=== PATIENT | male | born 1955 | race Caucasian/White ===

== ENCOUNTER 2024-04-23 12:40 | Emergency (ER) | payer MEDICARE ==
[~2024-04-23] VITALS: Ht 175.3 cm; Wt 108.9 kg
[2024-04-23] MEDS ORDERED: LOSARTAN POTASS25 M2 PO (12:57)
[2024-04-23] MEDS ORDERED: CARV6.25 PO (12:57)
[2024-04-23] MEDS ORDERED: Diltiazem HCl 5 MG / ML 5ML Vial IV ONE ×2 (13:35→14:05)
[2024-04-23 13:44] LABS: BASOPHILS ABSOLUTE AUTO 0.07 K/mm3 (0.00-0.23); BASOPHILS PERCENT AUTO 1 % (0-2); EOSINOPHILS ABSOLUTE AUTO 0.27 K/mm3 (0.00-0.68); EOSINOPHILS PERCENT AUTO 2 % (0-6); Hematocrit 42.5 % (37.0-53.0); Hemoglobin 14.3 g/dL (13.5-17.5); IMMATURE GRAN ABSOLUTE AUTO 0.03 K/mm3 (0.00-0.10); IMMATURE GRAN PERCENT AUTO 0 % (0-1); LYMPHOCYTES ABSOLUTE AUTO 1.71 K/mm3 (0.84-5.20); LYMPHOCYTES PERCENT AUTO 14 % (21-46); MONOCYTES ABSOLUTE AUTO 1.02 K/mm3 (0.16-1.47); MONOCYTES PERCENT AUTO 8 % (4-13); Mean Corpuscular HGB 32.6 pg (26.0-34.0); Mean Corpuscular HGB Conc 33.6 g/dL (31.5-36.5); Mean Corpuscular Volume 97 fL (80-100); Mean Platelet Volume 10.1 fL (9.1-12.4); NEUTROPHILS PERCENT AUTO 75 % (41-73); Platelet Count 258 K/mm3 (150-400); RDW Coefficient Variation 14.4 % (11.7-14.2); RDW Standard Deviation 51.4 fL (35.1-46.3); Red Blood Cell Count 4.38 M/mm3 (4.30-5.90)
[2024-04-23 13:59] LABS: Albumin, Blood 3.3 g/dL (3.4-5.0); Bilirubin, Total 0.9 mg/dL (0.1-1.0); Bun/Creatinine Ratio 15.7 (12.0-20.0); Calcium, Blood 8.6 mg/dL (8.5-10.1); Creatinine, Blood 0.96 mg/dL (0.60-1.20); Globulin, Blood 3.4 g/dL (2.2-4.0); Potassium, Blood 4.2 mmol/L (3.5-5.5); Total Protein, Blood 6.7 g/dL (6.4-8.2)
[2024-04-23 15:27] LABS: U Amphetamine Screen Not Detected; U Barbituate Screen Not Detected; U Benzodiazapine Screen Not Detected; U Buprenorphine Screen Not Detected; U Cannabinoids Screen Not Detected; U Cocaine Screen Not Detected; U Methadone Screen Not Detected; U Methamphetamine Screen Not Detected; U Opiates Screen Not Detected; U Oxycodone Screen Not Detected; U Phencyclidine Screen Not Detected
== END 2024-04-23 15:22 | disposition left against medical advice (07) ==
LOC: ER 12:40
PROVIDERS: Emergency Medicine; Physician Assistant
DX: R00.2 Palpitations (principal); I48.91 Unspecified atrial fibrillation; Z88.5 Allergy status to narcotic agent; Z79.899 Other long term (current) drug therapy; Z79.811 Long term (current) use of aromatase inhibitors
CPT/HCPCS: 71045; 80053; 83880; 84443; 85025; 93005; 93010; 96374; 96376; 99285-25